=== PATIENT | female | born 1975 | race Caucasian/White ===

== ENCOUNTER 2020-07-26 18:23 | Emergency (ER) | payer BC ==
[~2020-07-26] VITALS: Ht 152.4 cm; Wt 64.9 kg
[2020-07-26 18:42] VITALS: BP_SYST 126
[2020-07-26] MEDS ORDERED: AZITHROMYCIN 250 MG TABLET PO ONE (19:15)
[2020-07-26] MEDS ORDERED: cefTRIAXone 0.75 GM in LIDOCAINE 1%, 20 ML MDV 2.1 ML IM ONE (19:15)
[2020-07-26 19:38] LABS: BILIRUBIN,URINE NEGATIVE (NEGATIVE); BLOOD, URINE 1+ (NEGATIVE); CLARITY/URINE CLEAR (CLEAR); COLOR,URINE YELLOW (YELLOW); GLUCOSE,URINE NEGATIVE (NEGATIVE); KETONES,URINE NEGATIVE (NEGATIVE); LEUKOCYTE ESTERASE ,URINE 1+ (NEGATIVE); NITRITE, URINE POSITIVE (NEGATIVE); PH,URINE 6.5 (5.0-8.0); PROTEIN URINE NEGATIVE (NEGATIVE); UROBILINOGEN,URINE 0.2 (0.2-1.0)
[2020-07-26 19:48] LABS: BACTERIA,URINE RARE /HPF (None Seen)
[2020-07-26] MEDS ORDERED: KETOROLAC TROMETHAMINE 60 MG/2 ML VIAL IM ONE (20:15)
[2020-07-26] MEDS ORDERED: IBUP-1969 PO (20:22)
[2020-07-26] MEDS ORDERED: CEFI400C2 PO (20:22)
[2020-07-26 20:47] VITALS: BP_SYST 131
== END 2020-07-26 20:47 | disposition home or self-care (01) ==
LOC: SED 18:23
DX: N30.90 Cystitis, unspecified without hematuria (principal)
CPT/HCPCS: 81000; 81025; 87086; 96372; 99284; J0696; J1885; J2001; Q0144

== ENCOUNTER 2021-08-27 12:02 | Emergency (ER) | payer BC ==
[~2021-08-27] VITALS: Ht 152.4 cm; Wt 64.4 kg
[~2021-08-27 12:02] MED LIST: CEFI400C2 PO; IBUP-1969 PO
[2021-08-27 12:37] VITALS: BP_SYST 117
--- NOTE | 2021-08-27 13:01 | NUR ---
Pt presen to ED with complaint of bilateral flank pain that radiates all through out her back and to her legs. Pt AOx4 GCS 15 in bed 6 with siderails up
--- NOTE | 2021-08-27 13:15 | NUR ---
ED physician at bedside to see pt
[2021-08-27] MEDS ORDERED: MORPHINE 4 MG INJ. 4 MG/ML VIAL IVP ONE ×2 (13:30→14:30)
[2021-08-27] MEDS ORDERED: KETOROLAC TROMETHAMINE 30 MG VIAL IVP ONE (13:30)
[2021-08-27 13:48] LABS: BILIRUBIN,URINE NEGATIVE (NEGATIVE); BLOOD, URINE NEGATIVE (NEGATIVE); CLARITY/URINE CLEAR (CLEAR); GLUCOSE,URINE TRACE (NEGATIVE); KETONES,URINE NEGATIVE (NEGATIVE); LEUKOCYTE ESTERASE ,URINE NEGATIVE (NEGATIVE); PROTEIN URINE NEGATIVE (NEGATIVE); UROBILINOGEN,URINE 0.2 (0.2-1.0)
[2021-08-27 13:54] LABS: COLOR,URINE AMBER (YELLOW)
[2021-08-27 13:55] LABS: NITRITE, URINE POSITIVE (NEGATIVE)
[2021-08-27 13:56] LABS: BASOPHILS % (AUTO) 0.9 % (0.0-2.0); EOSINOPHILS # (AUTO) 0.2 K/uL (0.0-0.4); EOSINOPHILS % (AUTO) 4.2 % (0.0-4.0); HEMATOCRIT 34.2 % (36-48); HEMOGLOBIN 11.8 g/dL (12.0-16.0); LYMPHOCYTES # (AUTO) 1.8 K/uL (1.0-5.5); LYMPHOCYTES % (AUTO) 30.9 % (20.5-51.5); MEAN CORPUSCULAR HEMOGLOBIN 32 pg (27-31); MEAN CORPUSCULAR HGB CONC 34 % (32-36); MEAN CORPUSCULAR VOLUME 94 fL (79.0-98.0); MONOCYTES # (AUTO) 0.5 K/uL (0.0-1.0); NEUTROPHILS # (AUTO) 3.2 K/uL (1.8-7.7); PLATELET COUNT (AUTO) 184 K/uL (130-430); RED BLOOD CELL COUNT(AUTO) 3.65 MIL/uL (4.2-6.2); WHITE BLOOD COUNT (AUTO) 5.7 K/uL (4.8-10.8)
[2021-08-27 14:23] LABS: CALCIUM 8.4 mg/dL (8.4-11.0); CREATININE 0.67 mg/dL (0.55-1.30); POTASSIUM 3.9 mmol/L (3.5-5.1)
[2021-08-27 14:28] LABS: TOTAL BILIRUBIN 0.4 mg/dL (0.0-1.0)
[2021-08-27] MEDS ORDERED: MAG HYDROX/AL HYDROX/SIMETH 30 ML, LIDOCAINE VISCOUS 2% 15ML (PO) 15 ML, DICYCLOMINE HC... PO ONE ×3 (14:30)
[2021-08-27] MEDS ORDERED: ONDANSETRON HCL 4 MG/2 ML VIAL IVP ONE ×2 (14:30)
[2021-08-27] MEDS ORDERED: NACL 0.9% 1,000 ML IV ONE (14:30)
[2021-08-27] MEDS ORDERED: cefTRIAXone 1 GM in D5W 50 ML IV ONE (14:30)
[2021-08-27] MEDS ORDERED: cefTRIAXone 1 GM VIAL ONE (14:37)
[2021-08-27] MEDS ORDERED: MAG-AL HYDROX/SIMETH 30 ML UDC ONE (14:38)
[2021-08-27] MEDS ORDERED: DICYCLOMINE HCL 10 MG/5 ML SOLUTION ONE (14:38)
[2021-08-27] MEDS ORDERED: LIDOCAINE VISCOUS 2%, 15 ML UDC ONE (14:53)
[2021-08-27 15:04] LABS: ALBUMIN 3.6 g/dL (3.4-4.8)
[2021-08-27] MEDS ORDERED: TRAM50TA2 PO (16:16)
[2021-08-27] MEDS ORDERED: PANT20TA2 PO (16:16)
[2021-08-27 16:25] VITALS: BP_SYST 121
--- NOTE | 2021-08-27 16:26 | NUR ---
Patient given written and verbal discharge instructions and verbalizes understanding. ER MD discussed with patient the results and treatment provided. Patient in stable condition. ID arm band removed. IV catheter removed intact and dressing applied, no active bleeding. Rx of protonix and tramadol given. Patient educated on pain management and to follow up with PMD. Pain Scale 0/10. Opportunity for questions provided and answered. Medication side effect fact sheet provided. Pt transported out of ED via wheelchair AOx4 GCS 15
== END 2021-08-27 16:26 | disposition home or self-care (01) ==
LOC: SED 12:02
DX: R10.9 Unspecified abdominal pain (principal)
CPT/HCPCS: 36415; 74176; 76376; 80053; 81003; 81025; 83605; 83690; 85025; 87040; 87086; 96365; 96375; 96376; 99284; J0696; J1885; J2001; J2270; J2405